=== PATIENT | male | born 1995 ===

== ENCOUNTER 2016-12-04 16:50 | Emergency (ER) | payer OTHER ==
[2016-12-04 17:29] VITALS: BP 149/74; PULSE 70; RESP 16; TEMP 98; O2SAT 100
--- NOTE | 2016-12-04 19:00 | ED PDOC ---
HPI: Back Time Seen by Provider: 12/04/16 17:37 Chief Complaint (Nursing): Back Pain Chief Complaint (Provider): Back pain History Per: Patient History/Exam Limitations: no limitations Onset/Duration Of Symptoms: Days Current Symptoms Are (Timing): Still Present Quality Of Discomfort: Sharp, Pressure, "Pain" Exacerbating Factor(s): Turning, Movement Additional Complaint(s): The patient is a 21yo male, presents to the ED for evaluation of mild left lower back pain, present intermittently for the past 2 months. Patient states the pain is worse with bending down and turning. He denies any heavy lifting, injury or trauma to the site. Patient additionally denies any radiation of pain , numbness, tingling, weakness, urinary and bowl incontinence. Patient offers no additional medical complaints. Past Medical History Reviewed: Historical Data, Nursing Documentation, Vital Signs Vital Signs: Last Vital Signs Temp 98.0 F 12/04/16 17:26 Pulse 70 12/04/16 17:26 Resp 16 12/04/16 17:26 BP 149/74 12/04/16 17:26 Pulse Ox 100 12/04/16 17:26 - Medical History PMH: No Chronic Diseases - Surgical History Surgical History: No Surg Hx - Family History Family History: States: No Known Family Hx - Home Medications Home Medications: Ambulatory Orders Medication Instructions Recorded Cyclobenzaprine [Cyclobenzaprine 10 mg PO Q8H #20 tab 12/04/16 HCl] Ibuprofen [Motrin Tab] 800 mg PO Q6H PRN #20 tab 12/04/16 - Allergies Allergies/Adverse Reactions: Allergies Allergy/AdvReac Type Severity Reaction Status Date / Time No Known Allergies Allergy Verified 12/04/16 17:26 Review of Systems Genitourinary Male: Negative for: Incontinence Musculoskeletal: Positive for: Back Pain Neurological: Negative for: Weakness, Numbness Physical Exam - Reviewed Nursing Documentation Reviewed: Yes Vital Signs Reviewed: Yes - Physical Exam Appears: Positive for: Non-toxic, No Acute Distress Head Exam: Positive for: ATRAUMATIC, NORMAL INSPECTION, NORMOCEPHALIC Neck: Positive for: Supple Respiratory: Negative for: Respiratory Distress Back: Positive for: Normal Inspection, Other (left SI joint tenderness). Negative for: L CVA Tenderness, R CVA Tenderness Extremity: Positive for: Normal ROM, Other (+ left leg raise). Negative for: Deformity, Swelling Neurologic/Psych: Positive for: Alert, Oriented. Negative for: Motor/Sensory Deficits - ECG O2 Sat by Pulse Oximetry: 100 (RA) Pulse Ox Interpretation: Normal Medical Decision Making Medical Decision Making: Time: 1800 Impression: Back pain Plan: -- Patient to be d/c home with pain medications. Patient informed to stretch legs to help alleviate his pain. Patient informed to follow up with his PCP. Scribe Attestation: Documented by Kinjal Regalado acting as a scribe for HORACIO Avelar Provider Attestation: All medical record entries made by the Scribe were at my direction and personally dictated by me. I have reviewed the chart and agree that the record accurately reflects my personal performance of the history, physical exam, medical decision making, and the department course for this patient. I have also personally directed, reviewed, and agree with the discharge instructions and disposition. Disposition - Clinical Impression Clinical Impression: Disorder of SI (sacroiliac) joint - Disposition Disposition: Routine/Home Disposition Time: 19:05 Condition: STABLE Prescriptions: Cyclobenzaprine [Cyclobenzaprine HCl] 10 mg PO Q8H #20 tab Ibuprofen [Motrin Tab] 800 mg PO Q6H PRN #20 tab PRN Reason: Pain Instructions: Back Pain (ED) Forms: [facility] (Slovenian) Print Language: YORUBA
== END 2016-12-04 19:12 | disposition home or self-care (01) ==
LOC: H.ER 16:50
DX: M53.3 Sacrococcygeal disorders, not elsewhere classified (principal)

== ENCOUNTER 2017-06-28 11:46 | Emergency (ER) | payer SELFPAY ==
[2017-06-28 12:00] VITALS: BP 124/74; PULSE 68; RESP 16; TEMP 99; O2SAT 100
[2017-06-28] MEDS ORDERED: Sodium Chloride 0.9% 1,000 ML IV STA (12:27)
[2017-06-28 12:56] LABS: BASO % 0.7 % (0.0-2.0); EOS # 0.1 K/uL (0.0-0.7); EOS % 2.2 % (0.0-4.0); LYMPH # 2.7 K/uL (1.0-4.3); LYMPH % 40.7 % (20.0-40.0); MEAN CELL VOLUME 92.7 fl (80.0-94.0); MEAN CORPUSCULAR HEMOGLOBIN 32.1 pg (27.0-31.0); MEAN CORPUSCULAR HGB CONC 34.6 g/dL (33.0-37.0); MEAN PLATELET VOLUME 8.3 fl (7.2-11.7); MONO # 0.8 K/uL (0.0-0.8); MONO % 12.3 % (0.0-10.0); NEUT # 2.9 K/uL (1.8-7.0); NEUT % 44.1 % (50.0-75.0); NRBC % 0.1 % (0.0-0.0); RED CELL DISTRIBUTION WIDTH 12.5 % (11.5-14.5); WHITE BLOOD COUNT 6.7 K/uL (4.8-10.8)
[2017-06-28 13:18] LABS: ALB/GLOB RATIO 1.3 (1.0-2.1); ALBUMIN 4.6 g/dL (3.5-5.0); ALT/SGPT 33 U/L (21-72); AST/SGOT 39 U/L (17-59); BLOOD UREA NITROGEN 19 mg/dl (9-20); CALCIUM 9.3 mg/dL (8.4-10.2); GFR AFRICAN-AMERICAN > 60; GFR NON-AFRICAN AMERICAN > 60; LIPASE 147 U/L (23-300)
[2017-06-28 13:54] LABS: URINE BILIRUBIN NEGATIVE (NEGATIVE); URINE BLOOD SMALL (NEGATIVE); URINE CLARITY CLEAR (Clear); URINE COLOR YELLOW (YELLOW); URINE GLUCOSE (UA) NEG (Normal); URINE LEUKOCYTE ESTERASE NEG Leu/uL (Negative); URINE PROTEIN NEGATIVE (NEGATIVE); URINE UROBILINOGEN 0.2-1.0 mg/dL (0.2-1.0)
--- NOTE | 2017-06-28 14:05 | CT ---
PROCEDURE: CT Abdomen and Pelvis without intravenous contrast HISTORY: R/O RENAL COLIC COMPARISON: None. TECHNIQUE: Technique. Contrast Dose: Radiation dose: Total exam DLP = Total exam DLP = mGy-cm. This CT exam was performed using one or more of the following dose reduction techniques: Automated exposure control, adjustment of the mA and/or kV according to patient size, and/or use of iterative reconstruction technique. FINDINGS: LOWER THORAX: Unremarkable. LIVER: Unremarkable. No gross lesion or ductal dilatation. GALLBLADDER AND BILE DUCTS: Unremarkable. PANCREAS: Unremarkable. No gross lesion or ductal dilatation. SPLEEN: Unremarkable. ADRENALS: Unremarkable. No mass. KIDNEYS AND URETERS: Right nephrolithiasis.. No hydronephrosis. No solid mass. VASCULATURE: Unremarkable. No aortic aneurysm. BOWEL: Unremarkable. No obstruction. No gross mural thickening. APPENDIX: Unremarkable. Normal appendix. PERITONEUM: Unremarkable. No free fluid. No free air. LYMPH NODES: Unremarkable. No enlarged lymph nodes. BLADDER: Unremarkable. REPRODUCTIVE: Unremarkable. BONES: No acute fracture. OTHER FINDINGS: None. IMPRESSION: Right renal stones. No hydronephrosis..
--- NOTE | 2017-06-28 14:50 | ED PDOC ---
HPI: Abdomen Time Seen by Provider: 06/28/17 14:47 Chief Complaint (Nursing): Abdominal Pain Chief Complaint (Provider): ABD PAIN History Per: Patient (21 Y/O MALE HERE WITH RIGHT SIDED BACK/ABD PAIN NOTED X 2 WEEKS WORSE RECENTLY. DENIES DYSURIA/HEMATURIA. NOTED URINARY FREQUENCY. DENIES ANY FEVERS/CHILLS. NO MEDICATIONS TAKEN.) Past Medical History Reviewed: Historical Data, Nursing Documentation, Vital Signs Vital Signs: Last Vital Signs Temp 99.0 F 06/28/17 11:57 Pulse 68 06/28/17 11:57 Resp 16 06/28/17 11:57 BP 124/74 06/28/17 11:57 Pulse Ox 100 06/28/17 11:57 - Medical History PMH: Denies: Chronic Kidney Disease - Family History Family History: States: No Known Family Hx - Home Medications Home Medications: Ambulatory Orders Medication Instructions Recorded Cyclobenzaprine [Cyclobenzaprine 10 mg PO Q8H #20 tab 12/04/16 HCl] Ibuprofen [Motrin Tab] 800 mg PO Q6H PRN #20 tab 12/04/16 Ciprofloxacin [Cipro] 500 mg PO BID #14 tab 01/20/17 Ibuprofen [Motrin Tab] 800 mg PO Q8 PRN #30 tab 01/20/17 Tamsulosin [Flomax] 0.4 mg PO DAILY #14 cap 01/20/17 Naproxen 375 mg PO Q8 PRN #21 tablet 06/28/17 - Allergies Allergies/Adverse Reactions: Allergies Allergy/AdvReac Type Severity Reaction Status Date / Time No Known Allergies Allergy Verified 12/04/16 17:26 Review of Systems ROS Statement: Except As Marked, All Systems Reviewed And Found Negative Physical Exam - Reviewed Nursing Documentation Reviewed: Yes Vital Signs Reviewed: Yes - Physical Exam Appears: Positive for: Well, Non-toxic, No Acute Distress Head Exam: Positive for: ATRAUMATIC, NORMAL INSPECTION, NORMOCEPHALIC Skin: Positive for: Normal Color, Warm, DRY Eye Exam: Positive for: EOMI, Normal appearance, PERRL ENT: Positive for: Normal ENT Inspection Neck: Positive for: Normal, Painless ROM Cardiovascular/Chest: Positive for: Regular Rate, Rhythm Respiratory: Positive for: CNT, Normal Breath Sounds Gastrointestinal/Abdominal: Positive for: Normal Exam, Soft Back: Positive for: Normal Inspection. Negative for: L CVA Tenderness, R CVA Tenderness Extremity: Positive for: Normal ROM Neurologic/Psych: Positive for: Alert, Oriented - Laboratory Results Result Diagrams: 06/28/17 12:45 06/28/17 12:45 - ECG O2 Sat by Pulse Oximetry: 100 - Progress ED Course And Treament: CT ABD/PELVIS IMPRESSION: Right renal stones. No hydronephrosis.. Disposition - Clinical Impression Clinical Impression: Renal stone - Patient ED Disposition Is Patient to be Admitted: No - Disposition Referrals: Bryon Wharton MD [Staff Provider] - [facility] [Outside] Disposition: Routine/Home Disposition Time: 14:49 Condition: FAIR Prescriptions: Naproxen 375 mg PO Q8 PRN #21 tablet PRN Reason: Pain, Moderate (4-7) Instructions: Kidney Stones in Adults, Low Back Pain in Adults Print Language: [place]
== END 2017-06-28 15:01 | disposition home or self-care (01) ==
LOC: H.ER 11:46
DX: N20.0 Calculus of kidney (principal)
CPT/HCPCS: 74176; 80053; 81003; 83690; 85025; 96360; 99283; J7040